=== PATIENT | female | born 1955 ===

== ENCOUNTER 2025-02-09 07:37 | Emergency (ER) | payer MEDICARE ==
[~2025-02-09] VITALS: Ht 170.2 cm; Wt 94.6 kg
[2025-02-09] MEDS ORDERED: LISINOPRIL20 MG (07:59)
[2025-02-09] MEDS ORDERED: PENICILLIN V POTASSIUM 500 MG TAB PO ONE (08:00)
[2025-02-09] MEDS ORDERED: PENICILLIN V P500 MG PO (08:02)
[2025-02-09 08:12] VITALS: BP 189/91
== END 2025-02-09 08:12 | disposition home or self-care (01) ==
LOC: ED 07:37
DX: S02.5XXA Fracture of tooth (traumatic), initial encounter for closed fracture (principal); W22.8XXA Striking against or struck by other objects, initial encounter
CPT/HCPCS: 99282